=== PATIENT | female | born 1985 | race Caucasian/White ===

== ENCOUNTER 2019-10-29 18:36 | Emergency (ER) | payer MEDICAID ==
[~2019-10-29] VITALS: Ht 165.1 cm; Wt 68.0 kg
[2019-10-29] MEDS ORDERED: IBUPROFEN 600MG TABLET PO ONE (19:00)
[2019-10-29 21:03] VITALS: BP 104/71
== END 2019-10-29 21:04 | disposition home or self-care (01) ==
LOC: ER 18:36
DX: S93.602A Unspecified sprain of left foot, initial encounter (principal); S93.601A Unspecified sprain of right foot, initial encounter; S90.32XA Contusion of left foot, initial encounter; S90.31XA Contusion of right foot, initial encounter; W06.XXXA Fall from bed, initial encounter; Y93.39 Activity, other involving climbing, rappelling and jumping off; Y92.013 Bedroom of single-family (private) house as the place of occurrence of the external cause; F31.9 Bipolar disorder, unspecified
CPT/HCPCS: 73630; 99283

== ENCOUNTER 2019-10-29 22:14 | Emergency (ER) | payer MEDICAID ==
[~2019-10-29] VITALS: Ht 157.5 cm; Wt 64.0 kg
[2019-10-29 23:10] LABS: CLARITY URINE CLEAR (CLEAR); COLOR URINE DARK YELLOW (YELLOW); KETONES URINE 1+ (NEGATIVE); LEUKOCYTE ESTERASE URINE 2+ (NEGATIVE); NITRITE URINE NEGATIVE (NEGATIVE); OCCULT BLOOD URINE NEGATIVE (NEGATIVE); PH URINE 6.5 (4.5-8.0); PROTEIN URINE 1+ (NEGATIVE); SPECIFIC GRAVITY URINE 1.028 (1.005-1.030)
[2019-10-30] MEDS ORDERED: AZITHROMYCIN 500 MG TABLET PO ONE (00:15)
[2019-10-30] MEDS ORDERED: IBUPROFEN 600MG TABLET PO ONE (00:15)
[2019-10-30 00:16] VITALS: BP 130/60
== END 2019-10-30 00:18 | disposition home or self-care (01) ==
LOC: ER 22:14
DX: N39.0 Urinary tract infection, site not specified (principal); M79.673 Pain in unspecified foot; F31.9 Bipolar disorder, unspecified; F20.9 Schizophrenia, unspecified; Z88.0 Allergy status to penicillin
CPT/HCPCS: 81003; 81025; 99283